=== PATIENT | female | born 1965 | race Caucasian/White ===

== ENCOUNTER 2017-12-19 10:34 | Outpatient (CLI) | payer OTHER ==
--- NOTE | 2017-12-21 10:44 | Mammography Report ---
Procedure Date: 12/19/2017 Accession Number: [id number] / [id number] Procedure: MGN - Screening Mammo Dig Bilat CPT Code: FULL RESULT: EXAM: Screening Mammo Dig Bilat DATE: 12/19/2017 10:54 AM CLINICAL HISTORY: 52-year-old for screening TECHNIQUE: Bilateral CC, laterally exaggerated CC, MLO views were obtained. COMPARISON: 06/30/2015, 12/26/2013, 08/25/2011 FINDINGS: The breasts demonstrate heterogeneously dense fibroglandular parenchyma bilaterally. A few punctate, typically benign calcifications are present. No suspicious masses, clustered microcalcifications, or regions of architectural distortion are identified. IMPRESSION: Benign findings RECOMMENDATION: Routine annual screening unless otherwise clinically indicated. BIRADS CATEGORY 2: Benign findings STANDARD QUALIFYING STATEMENTS: 1. This examination was reviewed with the aid of Computer-Aided Detection (CAD). 2. A negative or benign imaging report should not delay biopsy if clinically suspicious findings are present. Consider surgical consultation if warrented. More than 5% of cancers are not identified by imaging. 3. Dense breasts may obscure an underlying neoplasm.
== END 2017-12-19 10:35 | disposition home or self-care (01) ==
LOC: DI.N 10:34
PROVIDERS: ATTEND Family Medicine
DX: Z12.31 Encounter for screening mammogram for malignant neoplasm of breast (principal)
CPT/HCPCS: 77067

== ENCOUNTER 2018-05-30 14:58 | Outpatient (CLI) | payer OTHER ==
--- NOTE | 2018-05-31 09:05 | DEXA Report ---
Reason: POSTMENOPAUSAL STATUS Procedure Date: 05/30/2018 Accession Number: [id number] / [id number] Procedure: DEX - Dexa Spine and/or Hip CPT Code: FULL RESULT: EXAM: Dexa Spine and/or Hip DATE: 05/30/2018 3:35 PM CLINICAL HISTORY: POSTMENOPAUSAL STATUS TECHNIQUE: Dual energy x-ray absorptiometry (DXA) was performed on a [employer] System. Regions measured are the AP Spine, femoral neck, and if needed forearm. COMPARISON: None. In accordance with the International Society for Clinical Densitometry (ISCD) guidelines, data from previous exams may be reanalyzed using current recommendations and techniques. This is done to allow a more accurate basis for comparison with the current study. FINDINGS: The data for the lumbar spine is as follows: BMD (g/cm/cm) T-SCORE Z-SCORE REGION L1 0.871 -2.2 -1.3 L2 0.961 -2.0 -1.1 L3 1.019 -1.5 -0.6 L4 1.025 -1.5 -0.6 TOTAL 0.976 -1.7 -0.8 NOTE: All evaluable vertebrae are used for classification The data for the hip is as follows: BMD (g/cm/cm) T-SCORE Z-SCORE REGION Neck 0.873 -1.2 -0.1 TOTAL 0.914 -0.7 0.0 NOTE: The femoral neck or total proximal femur, whichever is lowest, is used for classification. IMPRESSION: THE WHO CLASSIFICATION BASED ON THE INTERNATIONAL REFERENCE STANDARD IS OSTEOPENIA. THE FRACTURE RISK IS INCREASED. RECOMMENDATION: Patients with diagnosis of osteoporosis or osteopenia should have regular bone mineral density assessment. For those eligible for Medicare, routine testing is allowed once every 2 years. Testing frequency can be increased for patients who have rapidly progressing disease or for those who are receiving medical therapy to restore bone mass. COMMENT: World Health Organization (WHO) definitions for osteoporosis and osteopenia: NORMAL BMD: T-score at -1.0 or higher, fracture risk is low OSTEOPENIA BMD: T-score between -1.0 and -2.5, fracture risk is increased. OSTEOPOROSIS BMD: T-score at -2.5 or lower, fracture risk is high. National Osteoporosis Foundation recommends: 1. Obtain adequate dietary calcium (at least 1200 mg per day) and vitamin D (400-800 international units per day). 2. Participate, as appropriate, in regular weightbearing and muscle-strengthening exercise. 3. Avoid tobacco use and reduce alcohol and caffeine intake. 4. For more detailed information see the website at www.NOF.org.
== END 2018-05-30 14:59 | disposition home or self-care (01) ==
LOC: DI 14:58
PROVIDERS: ATTEND Family Medicine
DX: M85.89 Other specified disorders of bone density and structure, multiple sites (principal); Z78.0 Asymptomatic menopausal state
CPT/HCPCS: 77080

== ENCOUNTER 2020-03-18 11:25 | Outpatient (CLI) | payer OTHER ==
--- NOTE | 2020-03-18 15:43 | XRAY Report ---
PROCEDURE: Chest 2 View X-Ray INDICATIONS: ASBESTOS EXPOSURE TECHNIQUE: 2 view(s) of the chest. COMPARISON: Chest x-ray/ FINDINGS: Surgical changes and devices: None. Lungs and pleura: No pleural effusions or pneumothorax. Lungs are clear. Mediastinum: Mediastinal contours are normal. Heart size is normal. Bones and chest wall: No suspicious bony abnormalities. Soft tissues appear unremarkable. IMPRESSION: No acute pulmonary process. Reviewed by: Aparna Fuller MD on 03/18/2020 3:42 PM PDT Approved by: Aparna Fuller MD on 03/18/2020 3:42 PM PDT Station ID: [id number]
== END 2020-03-18 11:26 | disposition home or self-care (01) ==
LOC: DI.WCP 11:25
PROVIDERS: ATTEND Family Medicine
DX: Z77.090 Contact with and (suspected) exposure to asbestos (principal)
CPT/HCPCS: 71046

== ENCOUNTER 2020-03-18 11:51 | Outpatient (CLI) | payer OTHER ==
[2020-03-18 18:38] LABS: BASOPHILS # (AUTO) 0.1 10^3/uL (0.0-0.1); BASOPHILS % (AUTO) 1.1 %; EOSINOPHILS # (AUTO) 0.2 10^3/uL (0.0-0.7); EOSINOPHILS % (AUTO) 3.1 %; HGB - HEMOGLOBIN 14.7 g/dL (12.0-16.0); LYMPHOCYTES # (AUTO) 2.2 10^3/uL (1.5-3.5); LYMPHOCYTES % (AUTO) 39.1 %; MEAN CORPUSCULAR HEMOGLOBIN 28.9 pg (27.0-31.0); MEAN CORPUSCULAR HGB CONC 31.3 g/dL (32.0-36.0); MEAN CORPUSCULAR VOLUME 92.1 fL (81.0-99.0); MEAN PLATELET VOLUME 10.2 fL (7.9-10.8); MONOCYTES # (AUTO) 0.5 10^3/uL (0.0-1.0); MONOCYTES % (AUTO) 8.8 %; NEUTROPHILS # (AUTO) 2.7 10^3/uL (1.5-6.6); NEUTROPHILS % (AUTO) 47.7 %; PLT - PLATELET COUNT 301 10^3/uL (130-450); RED BLOOD COUNT 5.09 10^6/uL (4.20-5.40); RED CELL DISTRIBUTION WIDTH 12.4 % (12.0-15.0); WHITE BLOOD COUNT 5.6 x10^3/uL (4.8-10.8)
[2020-03-18 18:39] LABS: ALBUMIN 4.9 g/dL (3.2-5.5); ALBUMIN/GLOBULIN RATIO 1.6 (1.0-2.2); ALKALINE PHOSPHATASE 58 IU/L (42-121); ALT ALANINE AMINOTRANSFERASE 17 IU/L (10-60); AST ASPARTATE AMINOTRANSFERASE 20 IU/L (10-42); BILIRUBIN,TOTAL 0.7 mg/dL (0.2-1.0); BUN - BLOOD UREA NITROGEN 12 mg/dL (6-20); CALCIUM 9.6 mg/dL (8.5-10.3); CARBON DIOXIDE - CO2 28 mmol/L (21-32); CHLORIDE 99 mmol/L (101-111); CHOL/HDL RATIO 2.7 (<4.4); CHOLESTEROL 274 mg/dL; CREATININE 0.8 mg/dL (0.4-1.0); GLUCOSE 88 mg/dL (70-100); HDL CHOLESTEROL 103 mg/dL; LDL CHOLESTEROL,CALCULATED 157 mg/dL; LDL/HDL RATIO 1.5 (<4.4); SODIUM 137 mmol/L (135-145); VLDL CHOLESTEROL 14 mg/dL
[2020-03-18 20:27] LABS: FOLLICLE STIMULATING HORMONE 133.26 mIU/mL; LUTEINIZING HORMONE 52.11 mIU/mL
== END 2020-03-18 23:59 | disposition home or self-care (01) ==
LOC: LAB.WCP 11:51
PROVIDERS: ATTEND Family Medicine
DX: Z00.00 Encounter for general adult medical examination without abnormal findings (principal); Z77.090 Contact with and (suspected) exposure to asbestos; N94.3 Premenstrual tension syndrome
CPT/HCPCS: 36415; 80053; 80061; 82670; 83001; 83002; 83721; 84443; 85025

== ENCOUNTER 2020-04-01 15:04 | Outpatient (CLI) | payer OTHER ==
--- NOTE | 2020-04-01 16:20 | CT Report ---
PROCEDURE: CHEST WO INDICATIONS: ASBESTOS EXPOSURE TECHNIQUE: Noncontrast 5 mm thick sections acquired from the pulmonary apices to the posterior costophrenic angl es. 7 mm thick coronal and sagittal MIP reformats were then acquired. For radiation dose reduction, the following was used: automated exposure control, adjustment of mA and/or kV according to patient size. COMPARISON: None. FINDINGS: Image quality: Excellent. Lungs and pleura: No acute air space opacities. No pleural effusions or pneumothorax. Central and peripheral airways are patent and normal in caliber. Mediastinum: Heart size is normal. No pericardial effusion. No mediastinal adenopathy by size crit eria. Thoracic aorta and central pulmonary arteries are normal in size. Esophagus is normal in alton clarice. No hiatal hernia. Bones and chest wall: No suspicious bony lesions. No vertebral body compression fractures. No axil zackary or supraclavicular adenopathy by size criteria. The thyroid is normal in size. There is a low density cyst within the lower pole of the right thyroid lobe. Abdomen: Visualized upper abdominal solid organs and bowel loops appear normal in the absence of con trast. IMPRESSION: 1. No acute airspace opacities. No pulmonary nodules. No suspicious pulmonary lesions. No pleural david ques or calcified pleural lesions. 2. Low-density right thyroid cyst which is incompletely characterized. If further characterization is warranted, thyroid ultrasound could be used. Reviewed by: Ashtyn Bolton MD on 04/01/2020 4:19 PM PDT Approved by: Ashtyn Bolton MD on 04/01/2020 4:19 PM PDT Station ID: [id number]
== END 2020-04-01 15:05 | disposition home or self-care (01) ==
LOC: DI 15:04
PROVIDERS: ATTEND Family Medicine
DX: Z77.090 Contact with and (suspected) exposure to asbestos (principal); E04.1 Nontoxic single thyroid nodule
CPT/HCPCS: 71250

== ENCOUNTER 2020-04-23 15:21 | Outpatient (CLI) | payer OTHER ==
--- NOTE | 2020-04-25 07:11 | Ultrasound Report ---
INDICATIONS: THYROID NODULE TECHNIQUE: Real-time scanning was performed of the thyroid gland, with image documentation. COMPARISON: None FINDINGS: Right: Thyroid lobe measures 1.5 x 1.9 x 5.2 cm, and is homogeneous in echotexture. Left: Thyroid lobe measures 1.6 x 1.6 x 4.0 cm, and is homogenous in echotexture. Isthmus: 2 mm thick. Nodule number: One Location: Right thyroid lobe lower half Size: 1.9 x 1.4 x 1.6 cm. Composition: Solid Echogenicity: Isoechoic Shape: wider than tall. Margins: Smooth Echogenic foci: None Total points: 3 ACR TI-RADS category: TI-RADS category 3, mildly suspicious, follow-up thyroid ultrasound is recomme nded in one, 3 and 5 years from now. No biopsy. Nodule number: Two Location: Middle third right thyroid lobe Size: 5 x 6 x 7 mm Composition: Solid Echogenicity: Hypoechoic Shape: wider than tall. Margins: Smooth Echogenic foci: None Total points: Size ACR TI-RADS category: TI-RADS category 3, mildly suspicious. No specific follow-up given small size, no biopsy. Nodule number: Three Location: Posterior right mid thyroid margin Size: 6 x 7 x 7 mm Composition: Solid Echogenicity: Hypoechoic Shape: Rounded Margins: Smooth Echogenic foci: None Total points: 3 ACR TI-RADS category: TI-RADS category 3, and by position this may simply represent the right parath yroid gland at the posterior border of the thyroid itself. No biopsy. No specific follow-up. Nodule number: Four Location: Mid left thyroid lobe Size: 5 x 6 x 7 millimeters Composition: Solid Echogenicity: Hypoechoic Shape: wider than tall. Margins: Smooth Echogenic foci: None Total points: 3 ACR TI-RADS category: TI-RADS category 3, no biopsy, no follow-up. There is a fifth nodule measuring only 4 x 5 x 4mm, which is spongiform, isoechoic, smoothly marginat ed, and contains no punctate or coarse calcifications. Category 1, no follow-up, and no biopsy. IMPRESSION: The single nodule at the lower right thyroid lobe is of a small size and with a low enid gorization score such that biopsy is not recommended but follow-up targeted ultrasound directed to th is nodule is recommended in 1, 3, and 5 years from now. ACR TI-RADS definitions and recommendations: TI-RADS 1 (benign): 0 points. FNA not needed. TI-RADS 2 (not suspicious): 2 points. FNA not needed. TI-RADS 3 (mildly suspicious): 3 points. ? FNA if 2.5 cm or larger, follow up if 1.5 cm or larger (at 1, 3, and 5 years). TI-RADS 4 (moderately suspicious): 4-6 points. ? FNA if 1.5 cm or larger, follow up if 1 cm or larger (at 1, 2, 3, and 5 years). TI-RADS 5 (highly suspicious): 7 points or more. ? FNA if 1 cm or larger, follow up if 0.5 cm or larger (every year for 5 years). cm. Reviewed by: Addison Mims MD on 04/24/2020 10:54 AM PDT Approved by: Addison Mims MD on 04/24/2020 10:54 AM PDT Station ID: [id number]
== END 2020-04-23 15:22 | disposition home or self-care (01) ==
LOC: DI 15:21
PROVIDERS: ATTEND Family Medicine
DX: E04.1 Nontoxic single thyroid nodule (principal)
CPT/HCPCS: 76536

== ENCOUNTER 2020-11-25 07:57 | Outpatient (CLI) | payer OTHER ==
--- NOTE | 2020-11-26 13:30 | Mammography Report ---
BILATERAL DIGITAL SCREENING MAMMOGRAM 3D/2D: 11/25/2020 CLINICAL: Routine screening. Comparison is made to exams dated: 12/19/2017 mammogram, 06/30/2015 mammogram, 12/26/2013 mammogram, and 08/25/2011 mammogram - [facility]. The tissue of both breasts is heterogeneously den se. This may lower the sensitivity of mammography. No significant masses, calcifications, or other findings are seen in either breast. There has been no significant interval change. IMPRESSION: NEGATIVE There is no mammographic evidence of malignancy. A 1 year screening mammogram is recommended. This exam was interpreted at Station ID: [id number]. NOTE: For mammograms, a report in lay terms will be sent to the patient. Approximately 15% of breast malignancies will not be visualized mammographically. In the management of a palpable breast mass, a negative mammogram must not discourage biopsy of a clinically suspicious lesion. Electronically Signed By: Rudolph Smith M.D. aty/penrad:11/25/2020 10:03:28 ACR BI-RADS Category 1: Negative 3341F PARENCHYMAL PATTERN: (D) - The breast(s) demonstrate(s) heterogeneously dense fibroglandular berta martinez. BI-RADS CATEGORY: (1) - 1 RECOMMENDATION: (ANNUAL) - Recommend routine annual screening mammography. [id number] 1 year screening LATERALITY: (B)
== END 2020-11-25 07:58 | disposition home or self-care (01) ==
LOC: DI 07:57
DX: Z12.31 Encounter for screening mammogram for malignant neoplasm of breast (principal)

== ENCOUNTER 2021-02-13 18:11 | Outpatient (CLI) | payer OTHER ==
--- NOTE | 2021-02-13 21:39 | Ultrasound Report ---
PROCEDURE: Pelvic w/Transvaginal INDICATIONS: POSTMENOPAUSAL BLEEDING TECHNIQUE: Real-time scanning was performed of the pelvic organs, with image documentation. Additional endovagi nal scanning was necessary due to incomplete visualization of the adnexal and endometrial structures by transabdominal scanning. COMPARISON: None. FINDINGS: No pathologic free abdominal or pelvic fluid. Uterus: Uterus is normal in size at 3.6 x 4.9 x 7.4 cm. The endometrium measures 3 mm in combined t hickness. There is a submucosal fibroid in the right posterior uterus measuring approximately 2.2 x 2.2 x 2.0 cm. There is also a subserosal fibroid in the anterior midline uterus measuring approximate ly 1.6 x 1.3 x 1.0 cm. Ovaries: Normal size and appearance of both ovaries. No ovarian or adnexal mass. IMPRESSION: Two uterine fibroids, one submucosal and one subserosal. Normal thickness endometrium measuring 3 mm in double layer thickness. Reviewed by: Familia Reyez MD on 02/13/2021 9:38 PM PDT Approved by: Familia Reyez MD on 02/13/2021 9:38 PM PDT Station ID: [id number]
== END 2021-02-13 18:12 | disposition home or self-care (01) ==
LOC: DI 18:11
PROVIDERS: ATTEND Family Medicine
DX: D25.0 Submucous leiomyoma of uterus (principal); D25.2 Subserosal leiomyoma of uterus

== ENCOUNTER 2021-05-05 08:00 | Outpatient (CLI) | payer OTHER | END 2021-05-05 23:59 | LOC: LAB.N 08:00 | PROVIDERS: ATTEND Physician Assistant | DX: R09.81 Nasal congestion (principal); Z20.822 Contact with and (suspected) exposure to COVID-19 ==

== ENCOUNTER 2022-03-09 11:35 | Outpatient (CLI) | payer OTHER ==
--- NOTE | 2022-03-10 08:32 | Ultrasound Report ---
PROCEDURE: Head or Neck Soft Tissue INDICATIONS: THYROID NODULE TECHNIQUE: Real time scanning was performed of the neck region of interest, with image documentation . COMPARISON: None. FINDINGS: Right lobe of the thyroid gland measures 5.8 x 1.8 x 1.7 cm. Left lobe of the thyroid gland measures 3.7 x 1.6 x 1.6 cm. The isthmus measures 0.23 cm. Within the right thyroid lobe mid to inferior there is a 1.8 x 1.5 x 1.4 cm solid isoechoic smoothly marginated lesion which has slightly decreased in size from the prior examination where it maximally measured 1.9 cm in maximal dimension. Within the right thyroid lobe mid inferior there is a solid hyperechoic smoothly marginated lesion me asuring 1.0 x 0.5 x 0.7 cm previously measuring 0.7 cm in maximal dimension. Within the left thyroid lobe mid aspect there is a 0.7 x 0.5 x 0.6 cm solid hypoechoic smoothly ursula nated lesion which appears stable from prior examination where it measured 0.7 cm in maximal dimensio n. Within the left thyroid lobe superior medial there is a 0.6 x 0.5 x 0.4 cm cystic isoechoic smoothly marginated lesion which appears relatively stable from prior examination were measured 0.6 cm in maxi mal dimension. IMPRESSION: 1. Relatively stable appearance of thyroid nodules when compared to the prior examination. No signifi cant new abnormality identified. Reviewed by: Josh Matute MD on 03/10/2022 8:31 AM PDT Approved by: Josh Matute MD on 03/10/2022 8:31 AM PDT Station ID: [id number]
== END 2022-03-09 11:36 | disposition home or self-care (01) ==
LOC: DI 11:35
PROVIDERS: ATTEND Nurse Practitioner
DX: E04.2 Nontoxic multinodular goiter (principal)

== ENCOUNTER 2023-09-28 13:17 | Outpatient (CLI) | payer OTHER ==
--- NOTE | 2023-09-29 11:33 | Mammography Report ---
BILATERAL DIGITAL SCREENING MAMMOGRAM 3D/2D: 09/28/2023 CLINICAL: Routine screening. Comparison is made to exams dated: 11/25/2020 mammogram, 12/19/2017 mammogram, 06/30/2015 mammogram, and 12/26/2013 mammogram - [facility]. Both breasts are heterogeneously dense, which may obscure small masses (category c / 51-75% glandular tissue). No significant masses, calcifications, or other findings are seen in either breast. There has been no significant interval change. IMPRESSION: NEGATIVE There is no mammographic evidence of malignancy. A 1 year screening mammogram is recommended. Based on the Tyrer Cuzick model (a risk assessment model) the patient's lifetime risk is 11.7% and he r 10 year risk is 4.5%. According to the ACR, ACS, and NCCN guidelines, an annual breast MRI exam vazquez ng with mammogram is recommended if the patient's lifetime risk is 20% or greater. This exam was interpreted at Station ID: [id number]. NOTE: For mammograms, a report in lay terms will be sent to the patient. Approximately 15% of breast malignancies will not be visualized mammographically. In the management of a palpable breast mass, a negative mammogram must not discourage biopsy of a clinically suspicious lesion. Electronically Signed By: Pablo licona/parrish:09/28/2023 14:05:20 letter sent: No_Letter ACR BI-RADS Category 1: Negative 3341F PARENCHYMAL PATTERN: (D) - The breast(s) demonstrate(s) heterogeneously dense fibroglandular berta martinez. BI-RADS CATEGORY: (1) - 1 RECOMMENDATION: (ANNUAL) - Recommend routine annual screening mammography. [id number] 1 year screening LATERALITY: (B)
== END 2023-09-28 13:18 | disposition home or self-care (01) ==
LOC: DI 13:17
PROVIDERS: ATTEND Nurse Practitioner
DX: Z12.31 Encounter for screening mammogram for malignant neoplasm of breast (principal); R92.333 Mammographic heterogeneous density, bilateral breasts

== ENCOUNTER 2023-12-15 08:34 | Outpatient (CLI) | payer OTHER ==
[2023-12-15 08:55] LABS: BASOPHILS # (AUTO) 0.1 10^3/uL (0.0-0.1); EOSINOPHILS # (AUTO) 0.4 10^3/uL (0.0-0.7); EOSINOPHILS % (AUTO) 8.2 %; HCT - HEMATOCRIT 41.5 % (37.0-47.0); HGB - HEMOGLOBIN 13.4 g/dL (12.0-16.0); LYMPHOCYTES # (AUTO) 2.1 10^3/uL (1.5-3.5); LYMPHOCYTES % (AUTO) 43.3 %; MEAN CORPUSCULAR HEMOGLOBIN 28.7 pg (27.0-31.0); MEAN CORPUSCULAR HGB CONC 32.3 g/dL (32.0-36.0); MEAN CORPUSCULAR VOLUME 88.9 fL (81.0-99.0); MEAN PLATELET VOLUME 9.1 fL (7.9-10.8); MONOCYTES # (AUTO) 0.3 10^3/uL (0.0-1.0); MONOCYTES % (AUTO) 6.5 %; NEUTROPHILS % (AUTO) 40.8 %; PLT - PLATELET COUNT 269 10^3/uL (130-450); RED BLOOD COUNT 4.67 10^6/uL (4.20-5.40); RED CELL DISTRIBUTION WIDTH 12.8 % (12.0-15.0); WHITE BLOOD COUNT 4.8 x10^3/uL (4.8-10.8)
[2023-12-15 09:10] LABS: ALBUMIN 4.1 g/dL (3.2-5.5); ALBUMIN/GLOBULIN RATIO 1.8 (1.0-2.2); ALKALINE PHOSPHATASE 45 IU/L (42-121); ALT ALANINE AMINOTRANSFERASE 12 IU/L (10-60); AST ASPARTATE AMINOTRANSFERASE 15 IU/L (10-42); BILIRUBIN,TOTAL 0.5 mg/dL (0.2-1.0); BUN - BLOOD UREA NITROGEN 18 mg/dL (6-20); CALCIUM 9.1 mg/dL (8.5-10.3); CARBON DIOXIDE - CO2 28 mmol/L (21-32); CHLORIDE 108 mmol/L (101-111); CHOL/HDL RATIO 3.7 (<4.4); CHOLESTEROL 267 mg/dL; CREATININE 0.7 mg/dL (0.6-1.3); GFR - MDRD 86 (>89); GLUCOSE 90 mg/dL (74-104); HDL CHOLESTEROL 72 mg/dL; LDL CHOLESTEROL,CALCULATED 181 mg/dL; LDL/HDL RATIO 2.5 (<4.4); POTASSIUM 4.1 mmol/L (3.5-4.5); SODIUM 139 mmol/L (135-145); TOTAL PROTEIN 6.4 g/dL (6.4-8.9); TRIGLYCERIDES 69 mg/dL (48-352); VLDL CHOLESTEROL 14 mg/dL
[2023-12-15 09:26] LABS: THYROID STIMULATING HORMONE 1.63 uIU/mL (0.34-5.60)
== END 2023-12-15 08:35 | disposition home or self-care (01) ==
LOC: LAB 08:34
PROVIDERS: ATTEND Obstetrics & Gynecology
DX: R53.83 Other fatigue (principal); Z78.0 Asymptomatic menopausal state; Z13.220 Encounter for screening for lipoid disorders
CPT/HCPCS: 36415; 80053; 80061; 81599; 82670; 83001; 83002; 83090; 83721; 84443; 85025

== ENCOUNTER 2024-01-29 08:51 | Outpatient (CLI) | payer OTHER ==
[2024-01-29 09:02] LABS: BASOPHILS # (AUTO) 0.1 10^3/uL (0.0-0.1); BASOPHILS % (AUTO) 1.2 %; EOSINOPHILS # (AUTO) 0.4 10^3/uL (0.0-0.7); EOSINOPHILS % (AUTO) 5.6 %; HCT - HEMATOCRIT 40.3 % (37.0-47.0); LYMPHOCYTES # (AUTO) 2.6 10^3/uL (1.5-3.5); LYMPHOCYTES % (AUTO) 35.8 %; MEAN CORPUSCULAR HEMOGLOBIN 28.9 pg (27.0-31.0); MEAN CORPUSCULAR HGB CONC 32.3 g/dL (32.0-36.0); MEAN CORPUSCULAR VOLUME 89.6 fL (81.0-99.0); MEAN PLATELET VOLUME 9.1 fL (7.9-10.8); MONOCYTES # (AUTO) 0.6 10^3/uL (0.0-1.0); MONOCYTES % (AUTO) 7.9 %; NEUTROPHILS # (AUTO) 3.6 10^3/uL (1.5-6.6); NEUTROPHILS % (AUTO) 49.2 %; PLT - PLATELET COUNT 258 10^3/uL (130-450); RED CELL DISTRIBUTION WIDTH 12.2 % (12.0-15.0); WHITE BLOOD COUNT 7.4 x10^3/uL (4.8-10.8)
== END 2024-01-29 08:52 | disposition home or self-care (01) ==
LOC: LAB 08:51
PROVIDERS: ATTEND Obstetrics & Gynecology
DX: Z01.812 Encounter for preprocedural laboratory examination (principal); R87.613 High grade squamous intraepithelial lesion on cytologic smear of cervix (HGSIL)
CPT/HCPCS: 36415; 85025

== ENCOUNTER 2024-01-30 09:18 | Day surgery (SDC) | payer OTHER ==
[2024-01-30] MEDS: LACTATED RINGERS 1,000 ML IV ONE ×2 (09:22→13:52)
--- NOTE | 2024-01-30 10:31 | HISTORY & PHYSICAL EXAMINATION ---
HPI - History of Present Illness HPI Comment/Other: Patient is a 58-year-old postmenopausal female presents today for LEEP for several TOLAC HSIL and HPV negative. Does have a history of ASCUS and HSIL. No changes in her health history since we spoke last and she agrees to proceed with surgery. Thank All other symptoms reviewed and were negative except per HPI. PMH Basal cell carcinoma of the nose Migraines Depression Cervical dysplasia PSH Basal cell carcinoma removal Lasix Laser ablation of cervix SH Denies tobacco, alcohol, drugs Family History Noncontributory Allergies Penicillin: Hives Medications CombiPatch Bupropion Physical exam: General: Alert, oriented, no acute distress Head: Normal cephalic atraumatic Eyes: PERRLA, extraocular motions intact. Respiratory: Normal rate of respiration. No accessory muscle use, normal respiratory effort. Cardiovascular: Regular rate Abdomen: Nontender, nondistended Extremities: Normal range of motion Neuro: Oriented x3. Normal movements Psych: Appropriate mood and affect. Normal judgment and insight Plan 58-year-old perimenopausal female with HSIL here for LEEP 1. HSIL -Counseled risk, benefits, alternatives of LEEP in the OR. Discussed bleeding, damage to the organs, failure to get adequate sample. She agrees and would like to proceed. PMH/PSH - Past Medical History Cardiovascular: positive: High cholesterol Respiratory: positive: None Endocrine/Autoimmune: positive: None GI: positive: None : positive: None HEENT: positive: None Psych: positive: Depression Musculoskeletal: positive: None Derm: positive: None, Other MRSA Hx?: No - Past Surgical History General: positive: Colonoscopy /SOFTWARE QUALITY MANAGER: positive: Other Meds/Allgy - Home Medications Home Medications: Ambulatory Orders Medication Instructions Recorded Confirmed Bupropion HCl [Wellbutrin] 150 mg PO BID 08/17/15 01/23/24 - Allergies Allergies/Adverse Reactions: Allergies Allergy/AdvReac Type Severity Reaction Status Date / Time Penicillins Allergy Hives Verified 08/17/15 15:10 Exam - Vital Signs Vital Signs: Vital Signs x48h Temp Pulse Resp BP Pulse Ox 01/30/24 09:40 97.7 F 95 20 144/82 H 100
--- NOTE | 2024-01-30 11:54 | ANESTHESIA ---
Pre-Anesthesia VS, & Labs - Diagnosis HSK - Procedure LEEP UNDER ANESTHESIA Vital Signs: Temp Pulse Resp BP Pulse Ox O2 Flow Rate 36.5 C 95 20 144/82 H 100 01/30/24 09:40 01/30/24 09:40 01/30/24 09:40 01/30/24 09:40 01/30/24 09:40 Height: 5 ft 5 in Weight (kg): 62.2 kg Body Mass Index: 22.8 BMI Classification: Normal - NPO >8 hours - Is Patient ?: No Home Medications and Allergies Bupropion HCl [Wellbutrin] 150 mg PO BID 08/17/15 Allergies/Adverse Reactions: Allergies Allergy/AdvReac Type Severity Reaction Status Date / Time Penicillins Allergy Hives Verified 08/17/15 15:10 Anes History & Medical History - Anesthetic History Anesthesia Complications: reports: No previous complications Family history of Anesthesia Complications: Denies Family history of Malignant Hyperthermia: Denies - Medical History Cardiovascular: reports: High cholesterol Pulmonary: reports: None Gastrointestinal: reports: None Urinary: reports: None Neuro: reports: None Musculoskeletal: reports: None Endocrine/Autoimmune: reports: None Blood Disorders: reports: None Skin: reports: None, Other Smoking Status: Never smoker Psychosocial: reports: No issues indicated History of Cancer?: No - Surgical History General: reports: Colonoscopy Gynecologic: reports: Other Results - EKG Results EKG Comparison: Reviewed EKG, Normal EKG Exam General: Alert, Oriented x3, Cooperative, No acute distress Dental: WNL Mouth Openin Fingerbreadth Neck Mobility: Normal Mallampati classification: II Thyromental Distance: 4-6 cm Mental/Cognitive Status: Alert/Oriented X3, Normal for patient Cognitive Status: Within normal limits Plan Anesthesia Type: General Consent for Procedure(s) Verified and Reviewed: No Code Status: Attempt Resuscitation ASA classification: 1-Healthy patient Is this case an emergency?: No
[2024-01-30] MEDS ORDERED: POTASSIUM IODIDE/IODINE 14 ML SOLUTION ONE (12:34)
[2024-01-30] MEDS ORDERED: LIDOCAINE 1%-EPI 1:100000 20 ML MDV ONE (12:34)
[2024-01-30] MEDS ORDERED: ONDANSETRON 4 MG/2 ML VIAL ONE (12:42)
[2024-01-30] MEDS ORDERED: LIDOCAINE-PF 2% 10 ML AMP SUBQ ONE (12:42)
[2024-01-30] MEDS ORDERED: MIDAZOLAM 2 MG/2 ML VIAL ONE (12:42)
[2024-01-30] MEDS ORDERED: DEXAMETHASONE 4 MG/ML VIAL ONE (12:42)
[2024-01-30] MEDS ORDERED: PROPOFOL 200 MG/20 ML VIAL IVP ONE (12:42)
[2024-01-30] MEDS ORDERED: PROPOFOL 500 MG/50 ML 500 MG/50 ML VIAL ONE (13:04)
[2024-01-30] MEDS ORDERED: fentaNYL 100 MCG/2 ML VIAL ONE (13:04)
[2024-01-30] MEDS: LIDOCAINE-MPF 1% 30 ML VIAL IM ONE (13:30)
[2024-01-30] MEDS ORDERED: oxyCODONE 5 MG TABLET PO PRN (13:46)
--- NOTE | 2024-01-30 13:50 | OPERATIVE REPORT ---
Operative Report - General Procedure Date: 01/30/24 Planned Procedure: LEEP conization Pre-Op Diagnosis: HSIL Procedure Performed: LEEP conization Post Op Diagnosis: HSIL, status post LEEP conization - Procedure Note Primary Surgeon: Rommel Pulido MD Anesthesia Provider: Aysha Napier CRNA Anesthesia Technique: MAC Pathology: LEEP conization, tag at 12:00 Anterior cervical biopsy, tag at 12:00, distal margin Estimated Blood Loss (mL): 5 Urine Output (mL): 0 (Voided prior to procedure) Findings: Cervical polyp at approximately 2:00. Overall normal-appearing cervix. Complications: None - Other Other Information/Narrative: After informed consent, patient was taken the OR where sedation was achieved. She was prepped and draped in sterile fashion. Timeout was taken. Using a sterile, coated speculum, the cervix was visualized. Acetic acid is applied to the cervix and noted no significant acetowhite changes, but did see a small cervical polyp at approximately 2:00. The electrocautery vice was then used to create a cervical conization starting at 12:00 and moving circumferentially. This was tagged at 12:00. An additional biopsy was taken from the anterior cervical lip behind the conization. This was tagged at 12:00 at the distal border. After the biopsy, the area was injected with local anesthesia. Monsel solution was placed on the wound, and the cervix was hemostatic. Patient was taken the PACU in good condition.
[2024-01-30] MEDS ORDERED: IBUPROFEN 600 MG TABLET PO ONE (14:06)
[2024-01-30] MEDS: IBUPROFEN 600 MG TABLET PO SCH (14:07)
[2024-01-30 14:25] VITALS: BP 134/85; O2SAT 99
--- NOTE | 2024-01-30 15:04 | ANESTHESIA POST OP EVALUATION ---
Anesthesia Post Eval - Post Anesthesia Eval Vitals: Last Vital Signs Temp 36.3 C L 01/30/24 14:00 Pulse 83 01/30/24 14:10 Resp 14 01/30/24 14:10 BP 134/85 H 01/30/24 14:10 Pulse Ox 99 01/30/24 14:10 O2 Flow Rate CV Function Including HR & BP: Stable Pain Control: Satisfactory Nausea & Vomiting: Negative Mental Status: Baseline Respiratory Status: Airway Patent Hydration Status: Satisfactory Anesthesia Complications: None
== END 2024-01-30 09:19 | disposition home or self-care (01) ==
LOC: SDS 09:18
PROVIDERS: ATTEND Obstetrics & Gynecology
PROC: 0UBC7ZX Excision of Cervix, Via Natural or Artificial Opening, Diagnostic (ICD-10-PCS; principal; 2024-01-30 10:30)
DX: R87.613 High grade squamous intraepithelial lesion on cytologic smear of cervix (HGSIL) (principal); N84.1 Polyp of cervix uteri
CPT/HCPCS: 57522; A9270; J7120; 85025

== ENCOUNTER 2024-03-01 12:36 | Outpatient (CLI) | payer OTHER ==
[2024-03-01 13:05] LABS: ESTIMATED AVERAGE GLUCOSE 100 mg/dL (70-100); HEMOGLOBIN A1c% 5.1 % (4.27-6.07)
== END 2024-03-01 12:37 | disposition home or self-care (01) ==
LOC: LAB 12:36
PROVIDERS: ATTEND Obstetrics & Gynecology
DX: Z51.81 Encounter for therapeutic drug level monitoring (principal); Z79.890 Hormone replacement therapy
CPT/HCPCS: 36415; 83036; 84403

== ENCOUNTER 2024-03-07 08:00 | Outpatient (CLI) | payer OTHER ==
[2024-03-07 19:01] LABS: FECAL OCCULT BLOOD (FIT) NEGATIVE (NEGATIVE)
== END 2024-03-07 23:59 | disposition home or self-care (01) ==
LOC: LAB.N 08:00
PROVIDERS: ATTEND Obstetrics & Gynecology
DX: Z12.11 Encounter for screening for malignant neoplasm of colon (principal)
CPT/HCPCS: 82274